=== PATIENT | male | born 1980 | race African-American/Black ===

== ENCOUNTER 2016-08-24 19:43 | Emergency (ER) | payer OTHER ==
[2016-08-24 19:49] VITALS: BP 100/69; PULSE 76; TEMP 97.9; BMI 29.5
--- NOTE | 2016-08-24 20:41 | PDOC ---
History of Present Illness - General Chief Complaint: Respiratory Stated Complaint: COLD SYMPTOMS Time Seen by Provider: 08/24/16 20:15 - History of Present Illness Initial Comments: 08/24/16 20:37 CHIEF COMPLAINT: URI HISTORY OF PRESENT ILLNESS: 36 yo M with no PM presents to fast track with cough x 2 wks. Patient reports that he has finished a Z pedro pablo and has also been on Augmentin for the last 3 days for an ear infection. Patient is followed by an ENT and recently had an myringotomy of the right ear. He reports that he initially had a fever but has not had a fever in a week. He also states that his cough was productive initally but the "phlegm seems to be thinning now." No recent travel or sick contacts. PAST MEDICAL HISTORY: Denies past medical history FAMILY HISTORY: Denies SOCIAL HISTORY: Denies tobacco, alcohol, illicit drug use. SURGICAL HISTORY: Denies ALLERGIES: No known drug allergies REVIEW OF SYSTEMS General/Constitutional: Denies fever or chills. Denies weakness, weight change. HEENT: Denies change in vision. Denies ear pain or discharge. Denies sore throat. Cardiovascular: Denies chest pain or shortness of breath. Respiratory: Cough x 2 weeks, initially productive, now less phlegm and "improving some." Gastrointestinal: Denies nausea, vomiting, diarrhea or constipation. Denies rectal bleeding. Genitourinary: Denies dysuria, frequency, or change in urination. Musculoskeletal: Denies joint or muscle swelling or pain. Denies neck or back pain. Skin and breasts: Denies rash or easy bruising. PHYSICAL EXAM General Appearance: Well-appearing, appropriately dressed. No apparent distress , no intoxication. HEENT: R TM with tube appreciated. EOMI, PERRLA. Neck: Supple. Trachea midline. No tenderness, rigidity, carotid bruit, stridor , lymphadenopathy, or thyromegaly. Respiratory/Chest: Lungs CTAB. Cardiovascular: RRR. S1, S2. Gastrointestinal/Abdominal: Normal bowel sounds. Abdomen soft, non-distended. No tenderness or rebound tenderness. No organomegaly, pulsatile mass, guarding , hernia, hepatomegaly, splenomegaly. Musculoskeletal/Extremities: Normal inspection. FROM of all extremities, normal capillary refill. Pelvis Stable. No CVA tenderness. No tenderness to extremities, pedal edema, swelling, erythema or deformity. Integumentary: Appropriate color, dry, warm. No cyanosis, erythema, jaundice or rash Neurologic: grocery shopper II-XII intact. Fully oriented, alert. Appropriate mood/affect. Motor strength 5/5. No appreciable EOM palsy, facial droop or sensory deficit. 08/26/16 17:25 Past History - Past Medical History Allergies/Adverse Reactions: Allergies Allergy/AdvReac Type Severity Reaction Status Date / Time No Known Allergies Allergy Verified 08/24/16 19:49 Home Medications: Ambulatory Orders Guaifenesin [Mucus Relief] 400 mg PO QID PRN #28 tablet 08/24/16 Pseudoephedrine HCl [Sudafed 12 Hour] 120 mg PO BID PRN #14 tablet.er 08/24/16 Other medical history: denies - Psycho/Social/Smoking Cessation Hx Suicidal Ideation: No Smoking History: Never smoked Number of Cigarettes Smoked Daily: 20 Information on smoking cessation initiated: No *Physical Exam - Vital Signs Last Vital Signs Temp Pulse Resp BP Pulse Ox 97.9 F 76 18 100/69 99 08/24/16 19:46 08/24/16 19:46 08/24/16 19:46 08/24/16 19:46 08/24/16 19:46 Medical Decision Making - Medical Decision Making 08/26/16 17:28 36 yo M with no PM presents to fast track with cough x 2 wks. -Guaifenesin -Sudafed for congestion Advised patient to continue antibiotics prescribed and of signs and symptoms for return to ER; patient verbalized understanding and agrees to plan. *DC/Admit/Observation/Transfer Diagnosis at time of Disposition: Upper respiratory infection - Discharge Dispostion Disposition: HOME Condition at time of disposition: Stable Admit: No - Prescriptions Prescriptions: Guaifenesin [Mucus Relief] 400 mg PO QID PRN #28 tablet PRN Reason: Cough Pseudoephedrine HCl [Sudafed 12 Hour] 120 mg PO BID PRN #14 tablet.er PRN Reason: congestion - Referrals Referrals: Joao Ball MD [Staff Physician] - - Patient Instructions Printed Discharge Instructions: DI for Acute Bronchitis Additional Instructions: Please continue taking the Augmentin as directed. Take your new medication as prescribed. As discussed, please follow up with your ENT for further evaluation of your ear discomfort. If you develop any fever, vomiting, diarrhea , chills, or any new or worsening symptoms, please return to the ER. - Post Discharge Activity Work/School Note: Back to Work
== END 2016-08-24 20:45 | disposition home or self-care (01) ==
LOC: JERFT 19:43
DX: J06.9 Acute upper respiratory infection, unspecified (principal)
CPT/HCPCS: 99281-25

== ENCOUNTER 2017-05-05 19:38 | Emergency (ER) | payer OTHER ==
--- NOTE | 2017-05-05 19:51 | PDOC ---
Rapid Medical Evaluation Time Seen by Provider: 05/05/17 19:46 Medical Evaluation: Allergies Allergy/AdvReac Type Severity Reaction Status Date / Time No Known Allergies Allergy Verified 08/24/16 19:49 05/05/17 19:47 The patient presents with a chief complaint of: Hemorrhoid pain[] I have performed a brief in-person evaluation of this patient. Pertinent physical exam findings: vss, [Unable to assess in triage. ] I have ordered the following: [None] The patient will proceed to the ED for further evaluation. Discharge Disposition - Diagnosis Hemorrhoid - Referrals - Patient Instructions - Post Discharge Activity
[2017-05-05 19:55] VITALS: BP 125/70; PULSE 85; TEMP 97.7; BMI 36.9
--- NOTE | 2017-05-05 21:38 | PDOC ---
History of Present Illness - General History Source: Patient Exam Limitations: No Limitations - History of Present Illness Initial Comments: 05/05/17 21:49 The patient is a 37 year old male, with no significant past medical history, who presents to the emergency department with, one month of pain to the buttocks. As per patient, his buttocks is itchy, dry, and there is a bulge which is painful in nature. The patient is a cross country truck driver and reports his pain to worsen when he sits down. He reports his pain to feel better when he is in a warm bath. He reports his bulge to bleed after defecating. He denies any recent fevers, chills, headache or dizziness. He denies any recent nausea, vomit, diarrhea or constipation. He denies any recent chest pain or shortness of breath. He denies any recent dysuria, frequency, urgency or hematuria. Allergies: NKA Past surgical history: None reported. Social History: Smoker. <Jaskaran Helms - Last Filed: 05/05/17 21:49> <Elise Menendez - Last Filed: 05/05/17 22:07> - General Chief Complaint: Pain Stated Complaint: PAIN Time Seen by Provider: 05/05/17 19:46 Past History <Jaskaran Helms - Last Filed: 05/05/17 21:49> - Past Medical History COPD: No Other medical history: Pt denies - Suicide/Smoking/Psychosocial Hx Smoking History: Never smoked Have you smoked in the past 12 months: No Number of Cigarettes Smoked Daily: 20 Information on smoking cessation initiated: No Hx Alcohol Use: No Drug/Substance Use Hx: No Substance Use Type: None <Elise Menendez - Last Filed: 05/05/17 22:07> - Past Medical History Allergies/Adverse Reactions: Allergies Allergy/AdvReac Type Severity Reaction Status Date / Time No Known Allergies Allergy Verified 05/05/17 19:49 Home Medications: Ambulatory Orders NK [No Known Home Medication] 05/05/17 Review of Systems - Review of Systems Able to Perform ROS?: Yes Comments:: 05/05/17 21:50 CONSTITUTIONAL: Absent: fever, no chills, no fatigue EYES: Absent: visual changes ENT: Absent: ear pain, no sore throat CARDIOVASCULAR: Absent: chest pain, no palpitations RESPIRATORY: Absent: cough, no SOB GI: Absent: abdominal pain, no nausea, no vomiting, no constipation, no diarrhea GENITOURINARY: Absent: dysuria, no frequency, no hematuria MUSKULOSKELETAL: Absent: back pain, no arthralgia, no myalgia SKIN: Absent: rash NEURO: Absent: headache Rectum: Present: +Pain, itch, bleeding. All Other Systems: Reviewed and Negative <Jaskaran Helms - Last Filed: 05/05/17 21:49> *Physical Exam - Vital Signs Last Vital Signs Temp Pulse Resp BP Pulse Ox 97.7 F 85 20 125/70 97 05/05/17 19:49 05/05/17 19:49 05/05/17 19:49 05/05/17 19:49 05/05/17 19:49 - Physical Exam Comments: 05/05/17 21:53 GENERAL: Well-appearing, well-nourished. No apparent distress. HEENT: Normocephalic, atraumatic. PERRL, EOM intact. CARDIOVASCULAR: Normal S1, S2. Regular rate and rhythm. PULMONARY: Clear to auscultation bilaterally. ABDOMEN: Soft, non-distended, non-tender. RECTAL: +1 cm thrombosed hemorrhoid at the 7 oclock position. No erythema. Good rectal tone. EXTREMITIES: Normal ROM in all four extremities. No gross deformities. SKIN: Warm, dry. No rash NEUROLOGICAL: No focal neurological deficits. <Jaskaran Helms - Last Filed: 05/05/17 21:49> - Vital Signs Last Vital Signs Temp Pulse Resp BP Pulse Ox 97.7 F 85 20 125/70 97 05/05/17 19:49 05/05/17 19:49 05/05/17 19:49 05/05/17 19:49 05/05/17 19:49 <Elise Menendez - Last Filed: 05/05/17 22:07> *DC/Admit/Observation/Transfer - Attestations Scribe Attestion: 05/05/17 21:53 Documentation prepared by Jaskaran Helms, acting as medical insurance coder for Obi Braga MD. <Jaskaran Helms - Last Filed: 05/05/17 21:49> - Discharge Dispostion Admit: No <Elise Menendez - Last Filed: 05/05/17 22:07> Diagnosis at time of Disposition: Hemorrhoid Qualifiers: Hemorrhoid type: unspecified Qualified Code(s): K64.9 - Unspecified hemorrhoids - Discharge Dispostion Disposition: HOME Condition at time of disposition: Stable - Referrals Referrals: Nic Whalen MD [Staff Physician] - - Patient Instructions Printed Discharge Instructions: DI for Hemorrhoids Additional Instructions: You had hemorrhoid drained today. Please continue with the sitz baths at least 4 times a day to help the drainage continue. He may also continue with her preparation H. Please take stool softeners twice a day to help with her bowel movements. Please follow up with the colorectal surgeon as soon as possible. Return to the ER if you have any signs of infection including fevers, green or yellow drainage from the site, or have any changes in her symptoms. - Post Discharge Activity Forms/Work/School Notes: Back to Work
== END 2017-05-05 22:11 | disposition home or self-care (01) ==
LOC: JERFT 19:38
DX: K64.9 Unspecified hemorrhoids (principal)
CPT/HCPCS: 99281-25

== ENCOUNTER 2018-03-29 08:06 | Emergency (ER) | payer OTHER ==
[2018-03-29 08:12] VITALS: BP 118/78; PULSE 78; TEMP 97.9; BMI 34.0
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
[2018-03-29] MEDS ORDERED: IBUPROFEN 400 MG TABLET (FP) PO ONE ×2 (08:57→09:00)
== END 2018-03-29 09:04 | disposition home or self-care (01) ==
LOC: JERFT 08:06
DX: S13.4XXA Sprain of ligaments of cervical spine, initial encounter (principal); M62.830 Muscle spasm of back; V49.49XA Driver injured in collision with other motor vehicles in traffic accident, initial encounter; Y92.414 Local residential or business street as the place of occurrence of the external cause; Y93.89 Activity, other specified; Y99.8 Other external cause status
CPT/HCPCS: 99281-25

== ENCOUNTER 2018-07-22 12:26 | Emergency (ER) | payer OTHER ==
[2018-07-22 12:52] VITALS: BP 126/72; PULSE 62; TEMP 98; BMI 36.9
[2018-07-22] MEDS ORDERED: TETRACAINE 0.5% HCL 0.6ML DROPPER.BOTTLE OS ONE (12:52)
--- NOTE | 2018-07-22 12:52 | PDOC ---
Rapid Medical Evaluation Time Seen by Provider: 07/22/18 12:50 Medical Evaluation: Allergies Allergy/AdvReac Type Severity Reaction Status Date / Time No Known Allergies Allergy Verified 03/29/18 08:12 07/22/18 12:50 I have performed a brief in-person evaluation of this patient. The patient presents with a chief complaint of: foreign body to L eye from work exposure. "my right wrist hurts too" x intermittent 1 month, no meds taken for pain Pertinent physical exam findings: injected, tearing L eye with possible debris I have ordered the following: tetracaine The patient will proceed to the ED for further evaluation.
[2018-07-22] MEDS ORDERED: ERYTHROMYCIN 0.5% OPHTHALMIC OINTMENT 3.5 GM TUBE ONE ×2 (14:21→14:31)
[2018-07-22] MEDS ORDERED: ERYTHROMYCIN 0.5% OPHTHALMIC OINTMENT 3.5 GM TUBE OS ONE (14:27)
[2018-07-22] MEDS ORDERED: IBUPROFEN 600 MG TABLET (FP) PO ONE ×2 (14:27→14:31)
--- NOTE | 2018-07-22 14:27 | PDOC ---
History of Present Illness - General Chief Complaint: Foreign Body (FB) Stated Complaint: RT. HAND PAIN/LT. EYE PAIN Time Seen by Provider: 07/22/18 12:50 History Source: Patient Exam Limitations: No Limitations - History of Present Illness Timing/Duration: unsure, 24 hours Past History - Travel Traveled outside of the country in the last 30 days: No Close contact w/someone who was outside of country & ill: No - Past Medical History Allergies/Adverse Reactions: Allergies Allergy/AdvReac Type Severity Reaction Status Date / Time No Known Allergies Allergy Verified 03/29/18 08:12 Home Medications: Ambulatory Orders NK [No Known Home Medication] 07/22/18 COPD: No - Suicide/Smoking/Psychosocial Hx Smoking History: Unknown if ever smoked Have you smoked in the past 12 months: No Number of Cigarettes Smoked Daily: 20 Information on smoking cessation initiated: No Hx Alcohol Use: No Drug/Substance Use Hx: No Substance Use Type: None Review of Systems - Review of Systems Able to Perform ROS?: Yes Is the patient limited Occitan proficient: Yes Constitutional: Yes: Symptoms Reported, See HPI HEENTM: Yes: Symptoms Reported, See HPI, Eye Pain, Tearing (states yesterday was closing the barnard of his truck when he felt a foreign body fly into his left eye. States tried to wash it from his eye both with an eyewash in the shower but still has continued sensation) Respiratory: No: Symptoms reported Musculoskeletal: Yes: Symptoms Reported, See HPI, Joint Pain (second complaint of right wrist pain that's intermittent over the past month. States has some swelling to the dorsum at wrist joint that with rest spontaneously resolved. Has never been evaluated for same.), Joint Swelling All Other Systems: Reviewed and Negative *Physical Exam - Vital Signs Last Vital Signs Temp Pulse Resp BP Pulse Ox 98.0 F 62 16 126/72 100 07/22/18 12:51 07/22/18 12:51 07/22/18 12:51 07/22/18 12:51 07/22/18 12:51 - Physical Exam General Appearance: Yes: Nourished, Appropriately Dressed, Apparent Distress, Mild Distress HEENT: positive: ASUNCION (was small dark speck noted on cornea at approximately 9: 00 to the medial edge of the iris. Has positive photophobia, but visual acuity within normal limits), Normal ENT Inspection, TMs Normal, Other (small speck) Neck: positive: Supple Musculoskeletal: positive: Normal Inspection Extremity: positive: Normal Capillary Refill. negative: Normal Inspection ( swelling and fluctuance is noted to midpoint dorsum of right wrist consistent with a ganglion cyst. Has full range of motion of fingers, strong grasp, flexion and extension.) Integumentary: positive: Normal Color, Warm Neurologic: positive: owner consulting engineer II-XII NML intact, Fully Oriented, Alert, Normal Mood/ Affect, Normal Response, Motor Strength / Procedures - Additional Procedures Progress: 07/22/18 14:31 Tetracaine 0.1% solution applied to left affected eye with fluorescein staining. Reveals small foreign body midpoint 9:00. Able to sweep using Q-tip with re-evaluation showing no foreign body retained. Cornea intact. Applied erythromycin ophthalmic ointment to I and given ibuprofen for pain relief. Will follow-up with ophthalmology tomorrow- wrist splinty applied to right wrist 07/22/18 14:36 *DC/Admit/Observation/Transfer Diagnosis at time of Disposition: Ganglion cyst Foreign body, eye Qualifiers: Encounter type: initial encounter Laterality: left Qualified Code(s): T15.92XA - Foreign body on external eye, part unspecified, left eye, initial encounter - Discharge Dispostion Disposition: HOME Condition at time of disposition: Stable Decision to Admit order: No - Referrals Referrals: Kaleb Davalos MD [Primary Care Provider] - Gómez Castañeda MD [Staff Physician] - Gavin Sharpe MD [Staff Physician] - - Patient Instructions Printed Discharge Instructions: DI for Corneal Foreign Body-Eye Additional Instructions: Rest, avoid rubbing eyes Wash hands, use eye drops as directed, wash hands after use May use eye lubricating drops as often as needed erythromycin ointment, one thin film 3 times a day for 5 days Tylenol or ibuprofen for pain relief Avoid contact with others until redness and discharge is gone from eyes. Followup with ophthalmology in one to 2 days for thorough exam Return to emergency department for worsened pain, swelling, vision problems. Rest, ice to area on and off for 15 minutes 4-6 times a day Avoid heavy lifting or exercise until pain and swelling is resolved or until further directed Keep area highly elevated to reduce swelling Use splints/Roscoe wrap as directed Followup with orthopedist in one to 2 days if not improving, if significantly improved may wait one week for followup with orthopedist May use ibuprofen every 6 hours as needed for pain - Post Discharge Activity Forms/Work/School Notes: Back to Work
== END 2018-07-22 14:40 | disposition home or self-care (01) ==
LOC: JERFT 12:26
PROC: 08C9XZZ Extirpation of Matter from Left Cornea, External Approach (ICD-10-PCS; principal; 2018-07-22)
DX: T15.02XA Foreign body in cornea, left eye, initial encounter (principal); X58.XXXA Exposure to other specified factors, initial encounter; Y93.89 Activity, other specified; Y92.89 Other specified places as the place of occurrence of the external cause; Y99.8 Other external cause status; M67.431 Ganglion, right wrist
CPT/HCPCS: 99281-25

== ENCOUNTER 2018-10-03 11:31 | Emergency (ER) | payer BC, OTHER ==
[2018-10-03 11:40] VITALS: BP 103/73; PULSE 90; TEMP 97.6; BMI 36.9
--- NOTE | 2018-10-03 13:08 | PDOC ---
History of Present Illness - General Chief Complaint: Hemorrhoids Stated Complaint: HEMORRHOIDS Time Seen by Provider: 10/03/18 12:04 History Source: Patient Exam Limitations: No Limitations Past History - Travel Traveled outside of the country in the last 30 days: No Close contact w/someone who was outside of country & ill: No - Past Medical History Allergies/Adverse Reactions: Allergies Allergy/AdvReac Type Severity Reaction Status Date / Time No Known Allergies Allergy Verified 10/03/18 11:40 Home Medications: Ambulatory Orders Hydrocortisone/Lidocaine/Aloe [Courtney-Kvng 2-2% Kit] 1 each RC BID #1 kit 10/03/18 Polyethylene Glycol 3350 [Miralax (For Bowel Prep) -] 17 gm PO DAILY #1 bottle 10/03/18 COPD: No - Suicide/Smoking/Psychosocial Hx Smoking History: Current every day smoker Have you smoked in the past 12 months: No Number of Cigarettes Smoked Daily: 20 Information on smoking cessation initiated: No Hx Alcohol Use: No Drug/Substance Use Hx: No Substance Use Type: None Review of Systems - Review of Systems Able to Perform ROS?: Yes Comments:: 10/03/18 19:18 CONSTITUTIONAL: Absent: fever, chills, diaphoresis, generalized weakness, malaise, loss of appetite HEENT: Absent: rhinorrhea, nasal congestion, throat pain, throat swelling, difficulty swallowing, mouth swelling, ear pain, eye pain, visual Changes GASTROINTESTINAL: Absent: abdominal pain, abdominal distension, nausea, vomiting, diarrhea, constipation, melena, hematochezia SKIN: Present: hemorrhoid Absent: rash, itching, pallor NEUROLOGIC: Absent: headache, focal weakness or paresthesias, dizziness, unsteady gait, seizure, mental status changes, bladder or bowel incontinence PSYCHIATRIC: Absent: anxiety, depression, suicidal or homicidal ideation, hallucinations. Is the patient limited Latvian proficient: No *Physical Exam - Vital Signs Last Vital Signs Temp Pulse Resp BP Pulse Ox 97.6 F 90 18 103/73 99 10/03/18 11:37 10/03/18 11:37 10/03/18 11:37 10/03/18 11:37 10/03/18 11:37 - Physical Exam Comments: 10/03/18 19:19 GENERAL: The patient is awake, alert, and fully oriented, in no acute distress. HEAD: Normal with no signs of trauma. EYES: Pupils equal, round and reactive to light, extraocular movements intact, sclera anicteric, conjunctiva clear. EXTREMITIES: Normal range of motion, no edema. RECTAL: Partially thrombosed hemorrhoid at the 6 o'clock position extending into the anal sphincter NEUROLOGICAL: Normal speech, normal gait. PSYCH: Normal mood, normal affect. SKIN: Warm, Dry, normal turgor, no rashes or lesions noted. Medical Decision Making - Medical Decision Making 10/03/18 19:20 The patient is a 38-year-old male with no past medical history who presents to the ER today with hemorrhoids. He states that his problem is been going on for months however it recently flared after prolonged sitting at his job. He states that the area is tender to touch and it hurts to sit. Denies rectal bleeding, fever, chills and constipation. A/P: Partially thrombosed hemorrhoid On exam patient with a 1 cm hemorrhoid at the 6 o'clock position extending into the anal sphincter. Will not drain at this time given location. Patient does have follow-up with [facility] colorectal surgeons. Will refer patient there for further management and possible procedure to remove his hemorrhoid Will recommend supportive therapy including MiraLAX and hydrocortisone, lidocaine cream Discharge home I discussed the physical exam findings, ancillary test results and final diagnoses with the patient. I answered all of the patient's questions. The patient was satisfied with the care received and felt comfortable with the discharge plan and treatment plan. The Patient agrees to follow up with the primary care physician/specialist within 24-72 hours. Return precautions were given. *DC/Admit/Observation/Transfer Diagnosis at time of Disposition: Hemorrhoid Qualifiers: Hemorrhoid type: perianal venous thrombosis Qualified Code(s): K64.5 - Perianal venous thrombosis - Discharge Dispostion Disposition: HOME Condition at time of disposition: Stable Decision to Admit order: No - Prescriptions Prescriptions: Hydrocortisone/Lidocaine/Aloe [Courtney-Kvng 2-2% Kit] 1 each RC BID #1 kit Polyethylene Glycol 3350 [Miralax (For Bowel Prep) -] 17 gm PO DAILY #1 bottle - Referrals Referrals: Nic Whalen MD [Staff Physician] - - Patient Instructions Printed Discharge Instructions: DI for Hemorrhoids Additional Instructions: You were evaluated for your hemorrhoids today. You have an external thrombosed hemorrhoid. It is too close to your sphincter to be drained today. Please follow-up with your surgeon out of [facility] for further management. You may use the hydrocortisone lidocaine cream twice a day to help with pain Please continue with sitz baths to help soften the area. You may take Tylenol 650 mg every 4 hours as needed for pain Please take the Miralax as directed Return to the ER for worsening pain, fever, constipation or if you have any changes in your symptoms. - Post Discharge Activity
== END 2018-10-03 13:20 | disposition home or self-care (01) ==
LOC: JERFT 11:31
DX: K64.5 Perianal venous thrombosis (principal)
CPT/HCPCS: 99281-25

== ENCOUNTER 2021-08-12 08:39 | Day surgery (SDC) | payer BC ==
[2021-08-08 15:54] VITALS: BMI 41.5
[2021-08-12 11:28] VITALS: TEMP 97.9
[2021-08-12 11:41] VITALS: BP 108/87; PULSE 87
== END 2021-08-12 11:55 | disposition home or self-care (01) ==
LOC: FASU 08:39
PROVIDERS: ATTEND Internal Medicine Gastroenterology
PROC: 0DJD8ZZ Inspection of Lower Intestinal Tract, Via Natural or Artificial Opening Endoscopic (ICD-10-PCS; principal; 2021-08-12 10:46)
DX: Z12.11 Encounter for screening for malignant neoplasm of colon (principal); Z86.010 Personal history of colon polyps; K57.30 Diverticulosis of large intestine without perforation or abscess without bleeding

== ENCOUNTER 2021-11-08 17:34 | Emergency (ER) | payer BC ==
[2021-11-08 18:13] VITALS: BP 130/82; PULSE 83; RESP 17; TEMP 98; BMI 41.3
[2021-11-08] MEDS ORDERED: SODIUM CHLORIDE 0.9% 500 ML INFUS.BAG IV ONE (18:48)
[2021-11-08] MEDS ORDERED: ACETAMINOPHEN 1000 MG/100 ML BAG IVPB ONE (18:48)
[2021-11-08] MEDS ORDERED: ACETAMINOPHEN INJECTION 100 ML IVPB ONE (19:24)
[2021-11-08 19:55] LABS: BASO % 1.1 % (0-2.0); EOS % 3.4 % (0-4.5); HEMATOCRIT 42.8 % (35.4-49); HEMOGLOBIN 14.3 GM/dL (11.7-16.9); LYMPH % 27.6 % (8-40); MCHC 33.3 g/dl (32.0-35.9); MEAN CELL VOLUME 96.2 fl (80-96); MEAN PLT VOLUME 9.1 fl (7.5-11.1); MONO % 6.4 % (3.8-10.2); NEUT % 61.5 % (42.8-82.8); PLATELET COUNT 152 10^3/uL (134-434); RBC 4.45 M/mm3 (4.00-5.60); RDW 13.2 % (11.9-15.9); WHITE BLOOD COUNT 6.2 K/mm3 (4.0-10.0)
[2021-11-08 20:13] LABS: CALCIUM 8.5 mg/dL (8.5-10.1)
[2021-11-08 20:14] LABS: ALBUMIN 3.2 g/dl (3.4-5.0); BLOOD UREA NITROGEN 10.7 mg/dL (7-18)
[2021-11-08 20:17] LABS: CREATININE 0.8 mg/dL (0.55-1.3)
[2021-11-08 20:18] LABS: BILIRUBIN,TOTAL 0.3 mg/dL (0.2-1); TOT PROT 7.2 g/dl (6.4-8.2)
[2021-11-08] MEDS ORDERED: MAG HYDROX/AL HYDROX/SIMETH 30 ML UNIT-DOSE CUP PO ONE (22:01)
[2021-11-08] MEDS ORDERED: FAMOTIDINE 20 MG/50 ML IVPB 20 MG/50 ML MG IVPB ONE ×2 (22:02→22:22)
[2021-11-08] MEDS ORDERED: PANTOPRAZOLE SODIUM 40 MG VIAL IVPUSH ONE (22:02)
[2021-11-08] MEDS ORDERED: MAG HYDROX/AL HYDROX/SIMETH 30 ML UNIT-DOSE CUP ONE (22:21)
[2021-11-08] MEDS ORDERED: PANTOPRAZOLE SODIUM 40 MG VIAL ONE (22:22)
== END 2021-11-09 00:13 | disposition home or self-care (01) ==
LOC: JER 17:34
PROC: 3E033GC Introduction of Other Therapeutic Substance into Peripheral Vein, Percutaneous Approach (ICD-10-PCS; principal; 2021-11-08)
DX: K29.20 Alcoholic gastritis without bleeding (principal)
CPT/HCPCS: 36415; 76705-TC; 80053; 83690; 85025; 99284-25

== ENCOUNTER 2022-09-14 11:49 | Emergency (ER) | payer SELFPAY ==
[2022-09-14 12:05] VITALS: BP 122/80; PULSE 80; RESP 19; TEMP 98; BMI 41.3
[2022-09-14] MEDS ORDERED: DEXAMETHASONE SOD PHOSPHATE 10 MG/1 ML VIAL IM ONE (13:09)
[2022-09-14] MEDS ORDERED: ACETAMINOPHEN 325 MG TABLET (FP) PO ONE (13:09)
[2022-09-14] MEDS ORDERED: KETOROLAC TROMETHAMINE 30 MG/1 ML VIAL IM ONE (13:09)
[2022-09-14] MEDS ORDERED: DEXAMETHASONE SOD PHOSPHATE 10 MG/1 ML VIAL ONE (13:12)
[2022-09-14] MEDS ORDERED: ACETAMINOPHEN 500 MG TABLET (FP) ONE (13:12)
[2022-09-14] MEDS ORDERED: KETOROLAC TROMETHAMINE 30 MG/1 ML VIAL ONE (13:12)
== END 2022-09-14 15:14 | disposition home or self-care (01) ==
LOC: JERFT 11:49
PROC: 3E023GC Introduction of Other Therapeutic Substance into Muscle, Percutaneous Approach (ICD-10-PCS; principal; 2022-09-14)
PROC: 3E0233Z Introduction of Anti-inflammatory into Muscle, Percutaneous Approach (ICD-10-PCS; 2022-09-14)
DX: M79.672 Pain in left foot (principal); M77.32 Calcaneal spur, left foot
CPT/HCPCS: 73630-TC-LT; 99284-25; J1100

== ENCOUNTER 2023-06-28 18:14 | Emergency (ER) | payer OTHER ==
[2023-06-28 18:21] VITALS: BP 121/82; PULSE 110; RESP 20; TEMP 97.6; BMI 44.3
[2023-06-28] MEDS ORDERED: ACETAMINOPHEN 500 MG TABLET (FP) ONE (18:50)
[2023-06-28] MEDS: ACETAMINOPHEN 500 MG TABLET (FP) PO ONE (18:51)
[2023-06-28] MEDS ORDERED: KETOROLAC TROMETHAMINE 30 MG/1 ML VIAL ONE (20:01)
[2023-06-28] MEDS: KETOROLAC TROMETHAMINE 30 MG/1 ML VIAL IM ONE (20:06)
== END 2023-06-28 20:17 | disposition home or self-care (01) ==
LOC: JERFT 18:14 → JER 18:14
PROC: 3E0233Z Introduction of Anti-inflammatory into Muscle, Percutaneous Approach (ICD-10-PCS; principal; 2023-06-28)
DX: M25.572 Pain in left ankle and joints of left foot (principal)
CPT/HCPCS: 73610-TC-LT-FY; 99284-25

== ENCOUNTER 2023-08-10 16:28 | Emergency (ER) | payer OTHER ==
[2023-08-10 16:43] VITALS: BP 124/76; PULSE 88; RESP 18; TEMP 98.7; BMI 44.3
[2023-08-10] MEDS ORDERED: KETOROLAC TROMETHAMINE 30 MG/1 ML VIAL ONE (18:32)
[2023-08-10] MEDS: KETOROLAC TROMETHAMINE 30 MG/1 ML VIAL IM ONE (18:34)
== END 2023-08-10 19:02 | disposition home or self-care (01) ==
LOC: JERFT 16:28 → JER 16:28 → JERFT 19:02
PROC: 3E0133Z Introduction of Anti-inflammatory into Subcutaneous Tissue, Percutaneous Approach (ICD-10-PCS; principal; 2023-08-10)
DX: M25.562 Pain in left knee (principal)
CPT/HCPCS: 73562-TC-LT-FY; 99284-25